=== PATIENT | female | born 1985 | race Caucasian/White ===

== ENCOUNTER 2018-08-21 08:58 | Day surgery (SDC) | payer OTHER ==
[~2018-08-21] VITALS: Ht 170.2 cm; Wt 73.5 kg
[~2018-08-21 08:58] MED LIST: BUTA1CAP29 PO; CALC200T3 PO; DILT120C85 PO; ESOM20CA PO; FEXO180T81 PO; HYDROmorphone 2 MG/ML VIAL IV PRN; IBUP400T18 PO; IV RINGERS,LACTATED 1000ML 1,000 ML IV SCH; MELA3TAB2 PO; MORPHINE SULFATE 2 MG/ML VIAL. IV PRN; NORG1TAB13 PO; ONDANSETRON PF 4 MG/2 ML VIAL. IV PRN; fentaNYL PF VIAL 100 MCG/2 ML VIAL IV PRN
[2018-08-21 10:11] LABS: U PREG PATIENT NEGATIVE (NEG)
[2018-08-21] MEDS ORDERED: PROPOFOL 20 ML IV ONE (10:32)
[2018-08-21] MEDS ORDERED: DEXAMETHASONE SOD PHOS 4 MG/ML VIAL ONE ×2 (10:33)
[2018-08-21] MEDS ORDERED: LIDOCAINE 2% PF 5 ML VIAL. ONE ×2 (10:33)
[2018-08-21] MEDS ORDERED: ONDANSETRON PF 4 MG/2 ML VIAL. ONE (10:33)
[2018-08-21] MEDS ORDERED: MIDAZOLAM HCL/PF 2 MG/2 ML VIAL. ONE (10:34)
[2018-08-21] MEDS ORDERED: fentaNYL PF VIAL 100 MCG/2 ML VIAL ONE ×2 (10:34→14:25)
[2018-08-21] MEDS ORDERED: FAMOTIDINE 20 MG/2 ML VIAL ONE (10:36)
[2018-08-21] MEDS ORDERED: ROCURONIUM 50 MG/5 ML VIAL. ONE (10:38)
[2018-08-21] MEDS ORDERED: SURGICEL HEMOSTAT 4X8 EACH. ONE (10:56)
[2018-08-21] MEDS ORDERED: BUPIVACAINE-EPI 0.25%-1:200000 MPF 30 ML VIAL. ONE (10:56)
[2018-08-21] MEDS ORDERED: METHYLENE BLUE 1% 10 ML VIAL. ONE (11:21)
[2018-08-21] MEDS ORDERED: diphenhydrAMINE 50 MG/ML VIAL ONE (12:06)
[2018-08-21] MEDS ORDERED: GLYCOPYRROLATE 1 MG/5 ML VIAL. ONE (13:06)
[2018-08-21] MEDS ORDERED: NEOSTIGMINE METHYLSULFATE 5 MG/5 ML SYRINGE. ONE (13:06)
[2018-08-21] MEDS ORDERED: KETOROLAC 30 MG/ML INJ FOR OR. INJ ONE (13:11)
--- NOTE | 2018-08-21 13:53 | PDOC ---
BRIEF OPERATIVE NOTE Date: Aug 21, 2018 Pre-Op Diagnosis 1. CPP 2. Dyspareunia Post-Op Diagnosis Same + Endometriosis Procedure Performed 1. Op HSC 2. LPSC Resection Endometriosis 3. Chromotubation Surgeon Dr. Tamayo Anesthesia Type: General Blood Loss 10 ml Specimens Obtained peritoneal biopsies of bladder area and posterior culde sac Findings endometriosis Stage 1; Patent Right fallopian tube. Complications none Operative Note see dictation FRANCESCA TAMAYO Jr, MD Aug 21, 2018 13:53
--- NOTE | 2018-08-21 13:55 | DISCH ---
DISCHARGE INSTRUCTIONS Condition on Discharge Condition on Discharge: Stable Activity After Discharge Activity Instructions for Disc: Activity as tolerated Lifting Instructions after Dis: No heavy lifting Exercise Instruction after Dis: Progress as tolerated Driving Instructions after Dis: Do not drive today Diet after Discharge Diet after Discharge: Regular Contacting the DRJuly after DC Call your doctor for: Concerns you may have Follow-Up Follow up with: Dr. Tamayo in 1 weeks. FRANCESCA TAMAYO Jr, MD Aug 21, 2018 13:55
[2018-08-21] MEDS: fentaNYL PF VIAL 100 MCG/2 ML VIAL IV PRN ×2 (14:47→15:15)
[2018-08-21] MEDS ORDERED: oxyCODONE/APAP 5/325 1 TAB TABLET PO ONE (15:00)
[2018-08-21] MEDS ORDERED: OXYC-325 PO (15:05)
[2018-08-21 16:10] VITALS: BP 92/42
--- NOTE | 2018-08-21 19:13 | OP ---
DATE OF SURGERY: 08/21/2018 PREOPERATIVE DIAGNOSES: 1. Chronic pelvic pain. 2. Dyspareunia. POSTOPERATIVE DIAGNOSES: 1. Chronic pelvic pain. 2. Dyspareunia. 3. Endometriosis. PROCEDURE: 1. Operative hysteroscopy. 2. Laparoscopic resection of endometriosis. 3. Chromotubation. SURGEON: Francesca Tamayo MD. ANESTHESIA: GETA. ESTIMATED BLOOD LOSS: 10 mL. COMPLICATIONS: None. FINDINGS: Endometriosis stage I, patent right fallopian tube, normal-appearing ovaries and normal size uterus. SUMMARY: A 33-year-old female with long history of chronic pelvic pain and dyspareunia counseled on laparoscopic resection of endometriosis, chromotubation, operative hysteroscopy and voiced clear understanding to proceed. DESCRIPTION OF PROCEDURE: The patient was taken to surgery suite and placed in dorsal lithotomy position where she was prepped with Betadine solution for vaginal prep and ChloraPrep for abdominal prep. After adequate anesthesia, weighted speculum and curved [place] placed vaginally. Anterior lip of the cervix grasped with single tooth tenaculum. Cervix was then dilated with Hegar dilators up to size 6. A TruClear hysteroscope was then placed. Due to the poor images of the hysteroscope, it was difficult to visualize the fallopian tube ostia. There was malfunctioning of the instrumentation. Therefore, we cannot complete to the extent of the hysteroscope. The hysteroscope was then removed. The uterine acorn manipulator was then placed. A 60 mL syringe with methylene blue diluted in saline was then attached to the uterine acorn manipulator. Attention was now placed on abdomen. A small transverse skin incision made just below the umbilicus with a scalpel. The Veress needle was then placed through the infraumbilical incision site. The abdomen was allowed to insufflate up to 1-1/2 liters CO2 gas. The Veress needle was then removed, 5 mm trocar was placed. Scope was positioned. Uterus appeared normal size. Fallopian tubes and ovaries appeared normal initially. The chromotubation then took place, in which there was free spillage of the methylene blue through the patient's right tube. The left tube was not patent and did not demonstrate any spillage of dye. Two additional incisions made in the left lower quadrant with a scalpel, in which 5 mm trocars were placed. With the aid of the [place] and EndoShears, there were areas of endometriosis that were visualized on the peritoneum near the bladder and then in the posterior cul-de-sac. These were resected using the EndoShears with cautery. There was another area in which fulguration of endometriosis took place in the posterior cul-de-sac. Suction irrigation was utilized. Bertrand was then placed on the posterior cul-de-sac lesions due to minimal oozing from the peritoneal biopsy sites themselves. The areas were then hemostatic. The trocars were then removed under direct visualization. The abdomen was allowed to deflate as much as possible along with mechanical manipulation. The three skin incisions were reapproximated using 4-0 Vicryl suture in subcuticular manner. A 0.25% Marcaine with epinephrine was injected at each incision site. Uterine acorn manipulator and single tooth tenaculum were removed. The patient tolerated the procedure well and was taken to recovery room in stable condition. Sponge and needle count correct x 3. FRANCESCA TAMAYO MD DR: SAUL/ajay JOB#: [id number] / [id number]
--- NOTE | 2018-08-25 15:06 | PATHOLOGY ---
[facility] Accession Number: [id number] . 01 Material submitted: . PART A: bladder - BLADDER PERITONEAL BIOPSY PART B: peritoneum - POSTERIOR CUL DE SAC PERITONEAL BIOPSY. Modifiers: posterior . 01 Clinical history: . Dyspareunia, chronic female, pelvic pain, perineal pain . 02 Diagnosis: A. Segments of fibroadipose and fibromuscular tissue, bladder peritoneal biopsy: - Endometriosis. . B. Segments of fibroadipose and fibromuscular tissue, posterior cul-de-sac peritoneal biopsy: - Endometriosis. (JPM:dong/alexx 08/25/2018) [facility]/08/25/2018 . 02 Comment: There is no evidence of malignancy. (JPM:dong 08/22/2018) . 02 Electronically signed: . Hubert Gutierrez MD, Pathologist NPI- [id number] . 01 Gross description: . A. The specimen is received in formalin, labeled "Luque, Nicolle, bladder peritoneal biopsy", are two irregular fragments of downing-white to pink, rubbery soft tissue measuring 0.5 x 0.5 cm, bisected and 1.5 x 0.6 cm, serially sectioned. The specimen is entirely submitted in A1. . B. The specimen is received in formalin, labeled "Luque, Nicolle, posterior cul-de-sac peritoneal biopsy", are two irregular fragments of downing-white, lobulated soft tissue measuring 0.9 x 0.5 cm, bisected and 1.4 x 0.7 cm, trisected. The specimen is entirely submitted in B1. (SWS; 08/21/2018) SHS/SHS . 02 Pathologist provided ICD-10: N80.8, N80.3 . 02 CPT . 940148, 170463 Specimen Comment: A courtesy copy of this report has been sent to Specimen Comment: [phone], . Specimen Comment: Report sent to / DR LANG Performed at: [address] [id number] MD Skinny Shaw MD Phone: [phone] Performed at: 02 [facility] [address] [place], [place] [id number] MD Hubert Gutierrez MD Phone: [phone]
== END 2018-08-21 16:25 | disposition home or self-care (01) ==
LOC: SURG 08:58
PROVIDERS: ATTEND Obstetrics & Gynecology
DX: N80.3 Endometriosis of pelvic peritoneum (principal); N94.10 Unspecified dyspareunia
CPT/HCPCS: 58558; 58662; 81025; A7015; J0696; J1100; J1200; J2001; J2250; J2405; J2704; J2710; J3010; J3490; J7030; J7120; Q9968; J1885

== ENCOUNTER → 2018-12-24 | Outpatient (CLI) | payer OTHER ==
[~2018-12-24] MED LIST changes: -DILT120C85 PO; +DILT120C99 PO; -HYDROmorphone 2 MG/ML VIAL IV PRN; -IV RINGERS,LACTATED 1000ML 1,000 ML IV SCH; -MELA3TAB2 PO; +MELA3TAB56 PO; -MORPHINE SULFATE 2 MG/ML VIAL. IV PRN; -ONDANSETRON PF 4 MG/2 ML VIAL. IV PRN; +OXYC-325 PO; -fentaNYL PF VIAL 100 MCG/2 ML VIAL IV PRN
== END | disposition home or self-care (01) ==
LOC: LAB 15:21
PROVIDERS: ATTEND Internal Medicine Cardiovascular Disease
DX: I49.3 Ventricular premature depolarization (principal)
CPT/HCPCS: 36415; 84443

== ENCOUNTER → 2019-01-12 | Outpatient (CLI) | payer OTHER ==
--- NOTE | 2019-01-12 15:32 | CARD ---
MR#: [id number] Date of Study: 01/12/2019 Ordering Physician: LINDA DAY, Referring Physician: Renata FIELDS: Iris Montenegro APPROVED REPORT EXAM: Two-dimensional and M-mode echocardiogram with Doppler and color Doppler. Other Information Quality : GoodHR: 96bpm INDICATION Mitral Valve Prolapse PVC's 2D DIMENSIONS RVDd2.3 (2.9-3.5cm)Left Atrium(2D)3.4 (1.6-4.0cm) IVSd0.6 (0.7-1.1cm)Aortic Root(2D)2.3 (2.0-3.7cm) LVDd5.1 (3.9-5.9cm)LVOT Diameter2.1 (1.8-2.4cm) PWd0.6 (0.7-1.1cm)LVDs3.8 (2.5-4.0cm) FS (%) 25.4 %SV62.0 ml LVEF(%)49.8 (>50%) M-Mode DIMENSIONS RVDd2.30 (2.1-3.2cm)Left Atrium(MM)3.40 (2.5-4.0cm) IVSd0.60 (0.7-1.1cm)Aortic Root2.10 (2.2-3.7cm) LVDd5.10 (4.0-5.6cm)PWd0.70 (0.7-1.1cm) LVDs3.80 (2.0-3.8cm)LVEF(%)59 (>50%) Aortic Valve AoV Peak Santiago.141.1cm/sAoV VTI28.3cm AO Peak GR.8.0mmHgLVOT Peak Santiago.111.0cm/s LVOT VTI 19.04cmAO Mean GR.5mmHg ELBA (VMAX)2.94hn8FEI (VTI)2.33cm2 Mitral Valve MV E Ffvntzuz021.7cm/sMV DECEL FEKP511ea MV A Ftpuqkhl18.6cm/sMV IUG57zu E/A Ratio1.7MVA (PHT)4.63cm2 TDI E/Lateral E'7.3E/Medial E'8.5 Pulmonary Valve PV Peak Smkgeene135.0cm/sPV Peak Grad.5mmHg Tricuspid Valve RAP [id number] Pulmonary Vein S1 Lgrbdyes80.0cm/sD2 Znzqnofs36.4cm/s PVa mpgipvol245bvkt LEFT VENTRICLE The left ventricle is normal size. There is normal left ventricular wall thickness. The left ventricu lar systolic function is normal. The Ejection Fraction is 55-60%. There is normal LV segmental wall m otion. The left ventricular diastolic function and filling is normal for age. RIGHT VENTRICLE The right ventricle is normal size. There is normal right ventricular wall thickness. The right ventr icular systolic function is normal. ATRIA The left atrium size is normal. The right atrium size is normal. The interatrial septum is intact wit h no evidence for an atrial septal defect or patent foramen ovale as noted on 2-D or Doppler imaging. AORTIC VALVE The aortic valve is normal in structure and function. Doppler and Color Flow revealed no significant aortic regurgitation. There is no significant aortic valvular stenosis. MITRAL VALVE The mitral valve is thickened but opens well. Mild mitral valve prolapse. There is no mitral valve st enosis. Doppler and Color-flow revealed mild mitral regurgitation. TRICUSPID VALVE The tricuspid valve is normal in structure and function. Doppler and Color Flow revealed trace to mil d tricuspid regurgitation. There is no tricuspid valve stenosis. PULMONIC VALVE The pulmonary valve is normal in structure and function. The pulmonary valve is normal in structure a nd function. Doppler and Color Flow revealed mild pulmonic valvular regurgitation. There is no pulmon ic valvular stenosis. GREAT VESSELS The aortic root is normal in size. The ascending aorta is normal in size. The IVC is normal in size a nd collapses >50% with inspiration. PERICARDIAL EFFUSION There is no pleural effusion. There is no evidence of significant pericardial effusion. Critical Notification Critical Value: No <Conclusion> The left ventricular systolic function is normal. The Ejection Fraction is 55-60%. There is normal LV segmental wall motion. Mild mitral valve prolapse. Mild mitral regurgitation. Trace to mild tricuspid regurgitation. There is no evidence of significant pericardial effusion. Signed by : Linda Day, Electronically Approved : 01/12/2019 15:31:30
== END | disposition home or self-care (01) ==
LOC: ECHO 14:37
PROVIDERS: ATTEND Internal Medicine Cardiovascular Disease
DX: I08.8 Other rheumatic multiple valve diseases (principal); I49.3 Ventricular premature depolarization
CPT/HCPCS: 93306

== ENCOUNTER → 2019-10-01 | Outpatient (CLI) | payer OTHER ==
[~2019-10-01] MED LIST changes: +MELA3TAB4 PO; -MELA3TAB56 PO
== END | disposition home or self-care (01) ==
LOC: LAB 14:34
PROVIDERS: ATTEND Internal Medicine Pulmonary Disease
DX: Z20.828 Contact with and (suspected) exposure to other viral communicable diseases (principal)
CPT/HCPCS: C9803; U0003

== ENCOUNTER → 2019-11-23 | Outpatient (CLI) | payer OTHER | LOC: LAB 07:26 | PROVIDERS: ATTEND Obstetrics & Gynecology Reproductive Endocrinology | DX: O03.4 Incomplete spontaneous abortion without complication (principal) | CPT/HCPCS: 36415; 84443; 84702 ==

== ENCOUNTER → 2019-11-30 | Outpatient (CLI) | payer OTHER | END | disposition home or self-care (01) | LOC: LAB 07:36 | PROVIDERS: ATTEND Obstetrics & Gynecology Reproductive Endocrinology | DX: O03.4 Incomplete spontaneous abortion without complication (principal) | CPT/HCPCS: 36415; 84702 ==

== ENCOUNTER → 2019-12-21 | Outpatient (CLI) | payer OTHER | END | disposition home or self-care (01) | LOC: LAB 07:12 | PROVIDERS: ATTEND Obstetrics & Gynecology Reproductive Endocrinology | DX: O03.4 Incomplete spontaneous abortion without complication (principal) | CPT/HCPCS: 36415; 84443; 84702 ==

== ENCOUNTER → 2020-01-25 | Outpatient (CLI) | payer OTHER ==
[2020-01-25 09:00] LABS: FREE T4 1.42 ng/dL (0.76-1.46); THYROID STIM HORMONE (TSH) 1.705 uIU/mL (0.358-3.74)
== END ==
LOC: LAB 07:07
PROVIDERS: ATTEND Obstetrics & Gynecology Reproductive Endocrinology
DX: E03.9 Hypothyroidism, unspecified (principal)
CPT/HCPCS: 36415; 84439; 84443; 86376

== ENCOUNTER → 2020-03-22 | Outpatient (CLI) | payer OTHER ==
--- NOTE | 2020-03-22 18:50 | CARD ---
MR#: [id number] Date of Study: 03/22/2020 Ordering Physician: LINDA FOSTER, Referring Physician: LINDA FOSTER, Tech: Taylor Zepeda [facility] APPROVED REPORT EXAM: Two-dimensional and M-mode echocardiogram with Doppler and color Doppler. Other Information Quality : GoodHR: 75bpm Rhythm : NSR INDICATION Arrhythmia 2D DIMENSIONS RVDd3.3 (2.9-3.5cm)Left Atrium(2D)2.7 (1.6-4.0cm) IVSd0.9 (0.7-1.1cm)Aortic Root(2D)2.7 (2.0-3.7cm) LVDd4.6 (3.9-5.9cm)LVOT Diameter1.9 (1.8-2.4cm) PWd0.8 (0.7-1.1cm)LVDs3.5 (2.5-4.0cm) FS (%) 24.1 %SV46.7 ml Aortic Valve AoV Peak Santiago.151.9cm/sAoV VTI30.9cm AO Peak GR.9.2mmHgLVOT Peak Santiago.95.3cm/s AO Mean GR.5mmHgAVA (VMAX)1.69cm2 Mitral Valve MV E Xqyssqbq415.2cm/sMV DECEL KZIN438gw MV A Xhlixdon43.9cm/sE/A Ratio2.3 Tricuspid Valve TR P. Jfkotldo254fl/sTR Peak Gr.36mmHg Pulmonary Vein S1 Oxmsnxim60.4cm/sD2 Reqinllf10.3cm/s PVa pumvnnah580wctm LEFT VENTRICLE The left ventricle is normal size. There is normal left ventricular wall thickness. The left ventricu lar systolic function is normal and the ejection fraction is within normal range. Estimated ejection fracion 50-55%. There is normal LV segmental wall motion. The left ventricular diastolic function an d filling is normal for age. RIGHT VENTRICLE The right ventricle is normal size. There is normal right ventricular wall thickness. The right ventr icular systolic function is normal. ATRIA The left atrium size is normal. The right atrium size is normal. The interatrial septum is intact wit h no evidence for an atrial septal defect or patent foramen ovale as noted on 2-D or Doppler imaging. AORTIC VALVE The aortic valve is normal in structure and function. Doppler and Color Flow revealed no significant aortic regurgitation. There is no significant aortic valvular stenosis. MITRAL VALVE The mitral valve is normal in structure and function. There is no evidence of mitral valve prolapse. There is no mitral valve stenosis. Doppler and Color-flow revealed mild mitral regurgitation. TRICUSPID VALVE The tricuspid valve is normal in structure and function. Doppler and Color Flow revealed trace tricus pid regurgitation. Estimated PAP 40 mmHg. PULMONIC VALVE The pulmonary valve is normal in structure and function. Doppler and Color Flow revealed no pulmonic valvular regurgitation. GREAT VESSELS The aortic root is normal in size. The ascending aorta is normal in size. The pulmonary artery is nor mal. The IVC is normal in size and collapses >50% with inspiration. PERICARDIAL EFFUSION There is no evidence of significant pericardial effusion. Critical Notification Critical Value: No <Conclusion> The left ventricle is normal size. The left ventricular systolic function is normal and the ejection fraction is within normal range. Estimated ejection fracion 50-55%. Doppler and Color Flow revealed no significant aortic regurgitation. There is no significant aortic valvular stenosis. Doppler and Color-flow revealed mild mitral regurgitation. Doppler and Color Flow revealed trace tricuspid regurgitation. Estimated PAP 40 mmHg. Signed by : Jonah Lepe MD Electronically Approved : 03/22/2020 18:50:13
== END ==
LOC: ECHO 10:48
PROVIDERS: ATTEND Internal Medicine Cardiovascular Disease
DX: I34.0 Nonrheumatic mitral (valve) insufficiency (principal); I47.1 Supraventricular tachycardia
CPT/HCPCS: 93306

== ENCOUNTER → 2020-06-27 | Outpatient (CLI) | payer OTHER | LOC: LAB 07:28 | PROVIDERS: ATTEND Obstetrics & Gynecology Reproductive Endocrinology | DX: Z11.9 Encounter for screening for infectious and parasitic diseases, unspecified (principal) | CPT/HCPCS: 36415; 86592; 86644; 86645; 86703; 86705; 86803; 87340 ==

== ENCOUNTER 2020-09-22 08:14 | Day surgery (SDC) | payer OTHER ==
[~2020-09-22] VITALS: Ht 170.2 cm; Wt 72.0 kg
[~2020-09-22 08:14] MED LIST changes: +HYDROmorphone 2 MG/ML VIAL IVP PRN; +IV RINGERS,LACTATED 1000ML 1,000 ML IV SCH; +LEVO-101 PO; +METO-239 PO; +MORPHINE SULFATE 2 MG/ML INJ. IVP PRN; +MULT-445 PO; +PROCHLORPERAZINE 10 MG/2 ML VIAL. IVP PRN; +SUMA50TA3 PO; +ceFAZolin SODIUM IV Push 1 GM VIAL. IVP PRN; +fentaNYL PF VIAL 100 MCG/2 ML VIAL IVP PRN
[2020-09-22] MEDS ORDERED: ceFAZolin SODIUM IV Push 1 GM VIAL. IVP ONE (09:00)
[2020-09-22] MEDS ORDERED: fentaNYL PF VIAL 100 MCG/2 ML VIAL ONE (09:05)
[2020-09-22] MEDS ORDERED: MIDAZOLAM HCL/PF 2 MG/2 ML VIAL. ONE (09:05)
[2020-09-22] MEDS ORDERED: PROPOFOL 10 MG/ML (20ML) VIAL. IV ONE (09:06)
[2020-09-22] MEDS ORDERED: LIDOCAINE 2% PF 5 ML VIAL. ONE (09:06)
[2020-09-22] MEDS ORDERED: DEXAMETHASONE SOD PHOS 4 MG/ML VIAL ONE (09:06)
[2020-09-22] MEDS ORDERED: ONDANSETRON PF 4 MG/2 ML VIAL. ONE (09:06)
[2020-09-22] MEDS ORDERED: SEVOFLURANE 61 TO 120 MINUTES. IH ONE (09:08)
[2020-09-22] MEDS ORDERED: KETOROLAC 30 MG/ML VIAL. ONE (10:25)
--- NOTE | 2020-09-22 10:26 | PDOC ---
BRIEF OPERATIVE NOTE Date: Sep 22, 2020 Pre-Op Diagnosis Fibroid Post-Op Diagnosis Same + uterine septum Procedure Performed [place] [facility] [place] Surgeon Dr. Tamayo Anesthesia Type: General Blood Loss 5 ml Specimens Obtained myoma and endometrial tissue Findings endometrial fibroid 2 cm size and uterine septum Complications none Operative Note see dictation FRANCESCA TAMAYO Jr, MD Sep 22, 2020 10:26
[2020-09-22] MEDS ORDERED: HYDR-2761 PO (10:29)
--- NOTE | 2020-09-22 10:31 | DISCH ---
DISCHARGE INSTRUCTIONS Condition on Discharge Condition on Discharge: Stable Activity After Discharge Activity Instructions for Disc: Activity as tolerated Lifting Instructions after Dis: No heavy lifting Exercise Instruction after Dis: Progress as tolerated Driving Instructions after Dis: Do not drive today Diet after Discharge Diet after Discharge: Regular Contacting the DRJuly after DC Call your doctor for: Concerns you may have Follow-Up Follow up with: Dr. Tamayo in 1 week. FRANCESCA TAMAYO Jr, MD Sep 22, 2020 10:31
--- NOTE | 2020-09-22 10:43 | OP ---
DATE OF SURGERY: 09/22/2020 PREOPERATIVE DIAGNOSIS: Intrauterine fibroid. POSTOPERATIVE DIAGNOSES: Intrauterine fibroid and uterine septum. PROCEDURE: Operative hysteroscopy with myomectomy. SURGEON: Jonah Tamayo MD. ANESTHESIA: GETA. ESTIMATED BLOOD LOSS: 5 mL. COMPLICATIONS: None. FINDINGS: Endometrial fibroid 2 cm size, uterine septum. SUMMARY: A 35-year-old female with intrauterine fibroid requiring an operative hysteroscopy for resection. The patient was counseled on the risks, benefits and expectations and voiced clear understanding to proceed. DESCRIPTION OF PROCEDURE: The patient was taken to surgery suite and placed in dorsal lithotomy position, was prepped with Betadine solution and draped in a sterile fashion. After adequate anesthesia, weighted speculum and curved [place] placed vaginally. Anterior lip of cervix grasped with single tooth tenaculum. Cervix was dilated with Hegar dilators up to size 8. The TruClear hysteroscope was positioned. There appeared to be a uterine septum. Once we proceeded further up to the uterine fundus, there was about a 2 cm intrauterine fibroid protruding from about the fundus of the uterus. The resectoscope was utilized to resect a portion of the uterine septum and the myoma was resected as well. The hysteroscope was then removed. Fluid deficit was about 1000 mL. The single tooth tenaculum and weighted speculum were removed. The patient tolerated the procedure well and was taken to recovery room in stable condition. Sponge and needle count correct x 3. SAUL/SCHUYLER DR: Tonny TID: [id number]
[2020-09-22] MEDS ORDERED: HYDROcodone/APAP 5/325MG 1 TAB TABLET PO ONE (11:15)
[2020-09-22 11:29] VITALS: BP 124/84
--- NOTE | 2020-09-26 17:07 | PATHOLOGY ---
[facility] Accession Number: [id number] . 01 Material submitted: . endometrium - FIBROID ENDOMETRIAL TISSUE . 01 Clinical history: . FIBROID HYSTEROSCOPY MYOMECTOMY . 02 Diagnosis: Segments of endometrial and myometrial tissue and lower uterine segment, uterine curettings/myomectomy: - Endometrial polyps. - Proliferative endometrium. - Segments of myometrial tissue possibly consistent with leiomyomas. . (JPM:mm; 09/26/2020) [facility] 09/26/2020 1644 Local . 02 Comment: There is no atypia or evidence of malignancy. . (JPM:mml; 09/26/2020) . 02 Electronically signed: . Hubert Gutierrez MD, Pathologist NPI- [id number] . 01 Gross description: . The specimen is received in formalin, labeled "Luque, Nicolle and fibroid endometrial tissue". It consists of multiple rome-brown, irregular soft tissue fragments measuring 2.7 x 2.5 x 0.6 cm in aggregate. The specimen is placed in biopsy bag and entirely submitted in A1 through A3. (MRF; 09/23/2020) MFE/MFE 09/23/2020 1807 Local . 02 Pathologist provided ICD-10: N84.0 . 02 CPT . 617004 Specimen Comment: A courtesy copy of this report has been sent to [phone] Specimen Comment: [phone] Specimen Comment: Report sent to / DR LANG Performed at: [address], [place], [place] [id number] MD Oli Conley MD Phone: [phone] Performed at: [address] [facility] [address] [place], [place] [id number] MD Hubert Gutierrez MD Phone: [phone]
== END 2020-09-22 12:12 | disposition home or self-care (01) ==
LOC: SURG 08:14
PROVIDERS: ATTEND Obstetrics & Gynecology
DX: D25.9 Leiomyoma of uterus, unspecified (principal); N84.0 Polyp of corpus uteri; Q51.28 Other and unspecified doubling of uterus; K21.9 Gastro-esophageal reflux disease without esophagitis; Z87.891 Personal history of nicotine dependence; Z79.899 Other long term (current) drug therapy; Z98.890 Other specified postprocedural states; Z88.2 Allergy status to sulfonamides; Z88.8 Allergy status to other drugs, medicaments and biological substances; Z82.49 Family history of ischemic heart disease and other diseases of the circulatory system; Z83.3 Family history of diabetes mellitus
CPT/HCPCS: 58561; 81025; A4930; C1782; J0690; J1100; J1885; J2250; J2405; J2704; J3010; 88305